=== PATIENT | female | born 1960 | race Caucasian/White ===

== ENCOUNTER → 2019-08-23 | Outpatient (CLI) | payer BC | END | disposition home or self-care (01) | LOC: CFH 12:10 | PROVIDERS: ATTEND Internal Medicine Cardiovascular Disease | DX: Z01.810 Encounter for preprocedural cardiovascular examination (principal); R06.02 Shortness of breath; R07.89 Other chest pain; I21.9 Acute myocardial infarction, unspecified | CPT/HCPCS: 78452; 93017; A9502; J2785; 93306 ==

== ENCOUNTER → 2020-01-12 | Outpatient (CLI) | payer BC ==
[~2020-01-12] MED LIST: ATEN25TA PO; DIPH25CA61 PO; LISI5TAB7 PO; METF500T17 PO; guaifenesin PO
[2020-01-12 11:29] LABS: ALBUMIN 3.5 g/dL (3.4-5.0); ANION GAP 5 mmol/L (5-15); CALCIUM 8.9 mg/dL (8.5-10.1); CHLORIDE 104 mmol/L (98-107)
[2020-01-12 11:31] LABS: ALANINE AMINOTRANSFERASE 26 U/L (12-78); ALKALINE PHOSPHATASE 94 U/L (45-117); BILIRUBIN,TOTAL 0.8 mg/dL (0.2-1.0); CREATININE 0.72 mg/dL (0.55-1.02); TOTAL PROTEIN 7.3 g/dL (6.4-8.2)
== END | disposition home or self-care (01) ==
LOC: STAR 09:23
PROVIDERS: ATTEND Otolaryngology
DX: Z01.818 Encounter for other preprocedural examination (principal); J32.0 Chronic maxillary sinusitis; J32.2 Chronic ethmoidal sinusitis
CPT/HCPCS: 36415; 80053; 93005

== ENCOUNTER 2020-01-16 08:33 | Day surgery (SDC) | payer BC ==
[~2020-01-16] VITALS: Ht 172.7 cm; Wt 131.8 kg
[~2020-01-16 08:33] MED LIST changes: +EPINEPHRINE TOPICAL SOLN 1 MG/ML, 30ML ONE; +FLUORESCEIN SODIUM 500 MG/5 ML ONE; +LIDOCAINE 1%-EPI 1:100K, 20ML ONE; +NEOSPORIN OINT, 15GM ONE; +OXYMETAZOLINE NASAL SPRAY 0.05%, 15ML ONE
[2020-01-16] MEDS ORDERED: LACTATED RINGERS 1,000 ML IV SCH (09:21)
[2020-01-16] MEDS ORDERED: LIDOCAINE-MPF 1%, 2ML INFIL ONE (09:30)
[2020-01-16] MEDS ORDERED: CHLORHEXIDINE 15 ML UDC MM ONE (09:30)
[2020-01-16] MEDS ORDERED: CHLORHEXIDINE 15 ML UDC ONE (09:32)
[2020-01-16] MEDS ORDERED: MIDAZOLAM 1 MG/ML, 2ML ONE (10:45)
[2020-01-16] MEDS ORDERED: FENTANYL PF 100 MCG/2ML ONE ×2 (10:45→11:58)
[2020-01-16] MEDS ORDERED: SUCCINYLCHOLINE 20 MG/ML, 10ML ONE (11:26)
[2020-01-16] MEDS ORDERED: ROCURONIUM 10 MG/ML,10ML ONE (11:26)
[2020-01-16] MEDS ORDERED: PROPOFOL 10 MG/ML, 20ML ONE (11:26)
[2020-01-16] MEDS ORDERED: DEXAMETHASONE 4 MG/ML, 1ML ONE (11:26)
[2020-01-16] MEDS ORDERED: SUGAMMADEX 200 MG/2 ML IVPush ONE (11:26)
[2020-01-16] MEDS ORDERED: CLINDAMYCIN 150 MG/ML, 6ML ONE (11:41)
[2020-01-16] MEDS ORDERED: BACITRACIN 50,000 UNIT ONE (11:55)
[2020-01-16] MEDS ORDERED: BACITRACIN 50,000 UNIT IRRIG ONE (11:55)
[2020-01-16] MEDS ORDERED: FLUORESCEIN SODIUM 500 MG/5 ML ONE (12:47)
[2020-01-16] MEDS ORDERED: DIAZEPAM 5 MG/ML, 2ML IV PRN ×2 (13:00)
[2020-01-16] MEDS ORDERED: OXYcodone 5 MG/5 ML ORAL.SOL UDC PO PRN (13:00)
[2020-01-16] MEDS ORDERED: hydrALAzine 20 MG/ML, 1ML IV PRN (13:00)
[2020-01-16] MEDS ORDERED: LABETALOL 5MG/ML, 20ML IV PRN (13:00)
[2020-01-16] MEDS ORDERED: MEPERIDINE/PF 25MG/0.5ML IVPush PRN (13:00)
[2020-01-16] MEDS ORDERED: METOCLOPRAMIDE 5 MG/ML, 2ML IV PRN (13:00)
[2020-01-16] MEDS ORDERED: ONDANSETRON 2MG/ML, 2ML IVPush PRN (13:00)
[2020-01-16] MEDS ORDERED: FENTANYL PF 100 MCG/2ML IV PRN (13:00)
[2020-01-16] MEDS ORDERED: KETOROLAC 30 MG/1 ML IV PRN (13:00)
[2020-01-16] MEDS ORDERED: HYDROmorphone 1 MG/ML, 1ML INJ IV PRN (13:00)
[2020-01-16] MEDS ORDERED: PROMETHAZINE 25 MG/ML, 1ML IV PRN (13:00)
[2020-01-16] MEDS ORDERED: ALBUTEROL SULFATE 2.5 MG/3 ML NPPB PRN (13:00)
[2020-01-16] MEDS ORDERED: LABETALOL 5MG/ML, 20ML ONE (13:02)
== END 2020-01-16 15:45 | disposition home or self-care (01) ==
LOC: OUT 08:33
PROVIDERS: ATTEND Otolaryngology
DX: J32.0 Chronic maxillary sinusitis (principal); Z11.59 Encounter for screening for other viral diseases; J32.2 Chronic ethmoidal sinusitis; I25.10 Atherosclerotic heart disease of native coronary artery without angina pectoris; I10 Essential (primary) hypertension; E11.9 Type 2 diabetes mellitus without complications; I25.2 Old myocardial infarction; K21.9 Gastro-esophageal reflux disease without esophagitis; G43.909 Migraine, unspecified, not intractable, without status migrainosus; Z79.84 Long term (current) use of oral hypoglycemic drugs; Z79.899 Other long term (current) drug therapy; Z88.0 Allergy status to penicillin; Z88.8 Allergy status to other drugs, medicaments and biological substances; Z98.890 Other specified postprocedural states
CPT/HCPCS: 31240; 31254; 31267; 36415; 82962; 87070; 87075; 87102; 87205; 87635; 88304; 88311; J0330; J1100; J2250; J2704; J3010; J3490; J7120; 87186; 88305